=== PATIENT | male | born 1945 | race Hispanic/Latino ===

== ENCOUNTER 2016-09-04 09:14 | Emergency (ER) | payer MEDICARE, OTHER ==
[~2016-09-04] VITALS: Ht 167.6 cm; Wt 75.0 kg
[2016-09-04 09:18] VITALS: BP 179/95; PULSE 77; RESP 16; O2SAT 98
--- NOTE | 2016-09-04 09:25 | ED.REPORT ---
HPI-Eye Problem Date of Service Sep 04, 2016 ED Provider: Pastor Fields DO The patient is a 71 year old male with a history of DM on metformin who presents to the ED complaining of 3/10 left eye pain for the past 1.5 months. His vision is slightly blurred but he has been able to drive he car his car. Yesterday he also developed a severe, left-sided, headache and experienced left eye vision loss. He has not seen a doctor for his symptoms. Nursing Notes Stated Complaint: EYE PAIN Chief Complaint: Eye Nursing Notes Reviewed: Yes Allergies: Coded Allergies: No Known Allergies (Unverified , 09/04/16) Scheduled Metformin (Metformin) 500 Mg Tablet 500 MG PO BID Scheduled PRN Ibuprofen (Ibuprofen) 400 Mg Tablet 400 MG PO QID PRN PRN For Pain General Time Seen by MD: 09:24 Chief Complaint Left eye affected Hx Obtained From: Patient Arrived By: Walk-in Sudden in Onset?: Yes Onset Occurred: More than a week ago... (1 month) Symptom Duration: Since onset Location: : Eye left Quality: Painful Severity: Current: Pain level 3 out of 10 Pertinent Negative: Pt denies other symptoms Recent Healthcare: No recent doctor visit, No recent hospitalization Similar Sx Previous: No Past Medical History Past Medical History DM Past Surgical History unknown Smoking History Unknown if Ever Smoker Social History Other Social History: Good social support Ambulatory Status Independent Review of Systems Eyes: Reports: Blurred left, Eye pain left, Visual loss left, Denies: Blurred right, Eye pain right, Redness right, Visual loss right Neurologic: Reports: Headache, Denies: Change LOC, Dizziness, Lightheaded, Numbness, Syncope Complete sys rev & neg: except as marked. GI: Denies: Diarrhea, Nausea, Vomiting Physical Exam Initial Vital Signs Vital Signs (First) Date Time Temp Pulse Resp B/P Pulse Ox O2 Delivery O2 Flow Rate FiO2 09/04/16 09:18 36.1 77 16 179/95 98 Room Air Initial VS: Reviewed Head / Eyes: Normocephalic left pupil not reactive and 4mm right pupil is reactive and 2-3mm no periorbital cellulitis no hyphema or hypopyon Extraocular movements intact w/out pain Cloudy anterior chamber mild conjunctival injection General/Constitutional: Awake, Alert, Cooperative ENT: Atraumatic, Mucous membranes moist Skin: Atraumatic, Color NL, No rash Cardiovascular: Heart rate NL, Regular rhythm, Heart sounds NL hypertensive Upper Extremity / MS: Atraumatic, Inspection NL, Full range of motion, No deformity Wrist / Hand: Atraumatic, Inspection NL, Full range of motion, No deformity Lower Extremity / Pelvis / MS: Atraumatic, Inspection NL, Full range of motion , No deformity Ankle / Foot: Atraumatic, Inspection NL, Full range of motion, No deformity Interpretation & Diagnostics Interpretation & Diagnostics: HEAD CT IMPRESSION: 1. No acute intracranial abnormalities. 2. Right maxillary sinusitis. Dictated by: Zo Tate M.D. on 09/04/2016 at 10:00 Approved by: Zo Tate M.D. on 09/04/2016 at 10:02 Lab Results Interpretation Test 09/04/16 10:10 Procedures Procedure Notes: Re-Eval/Medical Decision Med Decision/Clinical Course Findngs seem to represent acute angle closure glaucoma. IV acetazolamide, atenolol drops and brimonidine drops given. Patient is sent emergently over to the ophthalmology office where they will be able to evaluate and continue acute management. Patient was at significant risk for permanent vision loss. Re-Evaluation/Progress : Time of Eval: 09:40 Re-Evaluation/Progress Note: Pt rechecked. Eye exam performed. No uptake of fluorescein. Tetracaine drop did not help pain. 55, 59, 67 pressure in eye. Plan for CT head and consult with opthamology. Consultation : Referral / Consult Name: Salma Cabral MD Consulted With: Doorkeeper Call Returned at: 09:55 Maternity Nurse: Agrees with eval, Agrees with plan Note: Case discussed with opthamology. Dr. Cabral agrees with plan. She can laser the eye today. [address] [facility], [address], [place] [address] cell number: [phone] Counseled Regarding: Diagnosis, Lab results, Need for follow-up, When/why to return to ED Discharge & Departure Primary Impression: Acute angle-closure glaucoma Laterality: left Qualified Code: H40.212 - Acute angle-closure glaucoma, left eye Disposition: Home Discharge Condition All VS Reviewed: Yes Condition: Stable Patient Instructions: Glaucoma (ED) Additional Instructions: Thank you for entrusting us with your care. Your head scan is normal. Your eye exam shows that your have glaucoma. The pressure in your eye is extremely high. I have talked with Dr. Salma Cabral, cupola tender helper with an office in [place] and she is available to see you today. I have attached her information. Drive directly from the Emergency Room to [place] today. Call Dr. Cabral on the drive to [place] and she will meet you at her office. Continue to follow up with her and your primary care physician in the next week to monitor your symptoms. Return to the Emergency Department if you experience any new or worsening symptoms. I hope you feel better soon! Dr. Salma Cabral [address] [facility], [address], [place] [address] cell number: [phone] Referrals: Alexander Kwong MD (Family) Salma Cabral MD Crit Care Except Billable Proc Time Spent: 30-74 minutes Services Performed: Patient management by me, Time spent at bedside, Reviewing test results, Reviewing imaging, Discussing patient care, Documentation in record Critical Care Notes: See MDM Scribe Attestation Portion of this note were transcribed by Ynes Fernández. I, Dr. Fields, personally performed the history, physical exam, and medical decision-making: I reviewed and confirmed the accuracy for the information in the transcribed note. Signed by: zandra Flaherty, 09/04/16 1100 copies to: Salma Cabral MD; Alexander Kwong MD, Timothy S DO Sep 04, 2016 09:25 Ynes Fernández Sep 04, 2016 09:34
[2016-09-04] MEDS ORDERED: IBUP400T22 PO (09:31)
[2016-09-04] MEDS ORDERED: METF500T4 PO (09:31)
[2016-09-04] MEDS ORDERED: 0.9% Sodium Chloride Inhalation Solution ONE (09:35)
[2016-09-04] MEDS ORDERED: fentaNYL-PF 50 mCg/mL 2 mL Inj IM ONE (09:35)
[2016-09-04] MEDS ORDERED: Fluorescein 0.6 mg Ophthalmic Strip ONE (09:35)
[2016-09-04] MEDS ORDERED: Tetracaine 0.5% 4 mL Ophthalmic Solution ONE (09:37)
[2016-09-04] MEDS ORDERED: Timolol 0.5% 5 mL Ophthalmic Solution LEFT_EYE ONE (09:45)
[2016-09-04] MEDS ORDERED: Brimonidine 0.2% 5 mL Ophthalmic Solution LEFT_EYE ONE (09:50)
[2016-09-04] MEDS ORDERED: DEXTROSE 5% IV ONE (09:50)
[2016-09-04] MEDS ORDERED: ACETAZOLAMIDE IV ONE (09:50)
--- NOTE | 2016-09-04 10:04 | DRSVH ---
PROCEDURE: CT BRAIN WITHOUT CONTRAST ([id number]) INDICATIONS: left sided headache TECHNIQUE: Noncontrast 4.5 mm thick angled axial sections acquired from the foramen magnum to the vertex, with c oronal reformats. COMPARISON: None. FINDINGS: Image quality: Excellent. CSF spaces: Basal cisterns are patent. No extra-axial fluid collections. The ventricles are symmet kelly in size and shape. Brain: No intracranial bleeds or masses. There is cerebral volume loss for age, with resultant vent ricular and sulcal prominence. There are periventricular and deep white matter chronic small vessel ischemic changes. There is intracranial internal carotid artery atherosclerosis. Skull and face: Calvarium and visualized facial bones appear intact, without suspicious lesions. Sinuses: There is an air fluid level in the right maxillary sinus. The mastoids are clear. IMPRESSION: 1. No acute intracranial abnormalities. 2. Right maxillary sinusitis. Dictated by: oZ Tate M.D. on 09/04/2016 at 10:00 Approved by: Zo Tate M.D. on 09/04/2016 at 10:02
[2016-09-04 11:08] VITALS: BP 158/88; PULSE 71; RESP 18; O2SAT 98
== END 2016-09-04 11:09 | disposition home or self-care (01) ==
LOC: SED 09:14
DX: E11.39 Type 2 diabetes mellitus with other diabetic ophthalmic complication (principal); H40.212 Acute angle-closure glaucoma, left eye; Z79.84 Long term (current) use of oral hypoglycemic drugs
CPT/HCPCS: 70450; 96374; 99284; J1120